=== PATIENT | female | born 1970 | race Two or more races ===

== ENCOUNTER 2022-05-08 04:04 | Emergency (ER) | payer OTHER ==
[~2022-05-08] VITALS: Ht 154.9 cm; Wt 74.8 kg
[~2022-05-08 04:04] MED LIST: COZAAR100 MG PO
[2022-05-08] MEDS ORDERED: VASOTEC5 MG (04:24)
[2022-05-08] MEDS ORDERED: IRBESARTAN300 MG (04:25)
== END 2022-05-08 16:20 | disposition home or self-care (01) ==
LOC: ER 04:04
DX: R10.11 Right upper quadrant pain (principal); Z20.822 Contact with and (suspected) exposure to COVID-19; K57.90 Diverticulosis of intestine, part unspecified, without perforation or abscess without bleeding